=== PATIENT | male | born 1990 | race Caucasian/White ===

== ENCOUNTER 2025-04-23 11:43 | Emergency (ER) | payer BC ==
[~2025-04-23] VITALS: Ht 182.9 cm; Wt 116.3 kg
--- NOTE | 2025-04-23 11:58 | ELECTROCARDIOGRAPH REPORT ---
[facility] Test Date: 2025-04-23 Test Time: 11:55:58 Pat Name: SCOOTER VALLADARES Department: EMERGENCY ROOM Room: Gender: M [employer]st: : 1990 Requested By: MAGALIE TAVERAS Order Number: [id number] Reading MD: Measurements Intervals [place] Rate: 74 P: 59 HI: 162 QRS: 73 QRSD: 85 T: 33 QT: 346 QTc: 384 Interpretive Statements Sinus rhythm Please click the below link to view image of tracing.
[2025-04-23 12:07] LABS: MEAN PLATELET VOLUME 9.1 FL (7.4-10.4); RED CELL DISTRIBUTION WIDTH 13.5 % (11.5-14.5)
--- NOTE | 2025-04-23 12:16 | RADIOLOGY REPORT ---
CHEST RADIOGRAPH Indication: CP Technique: Single frontal view of the chest was obtained COMPARISON: None FINDINGS: Lines and Tubes: None Lungs: Clear Pleura: No effusion. No pneumothorax. Cardiomediastinal contours: Unremarkable Bones: Unremarkable IMPRESSION: No acute disease.
[2025-04-23 12:27] LABS: CREATININE 1.03 MG/DL (0.60-1.10); PRO BRAIN NATRIURETIC PEPTIDE < 30 PG/ML (0-125); TOTAL CARBON DIOXIDE 28.8 MMOL/L (24-32); eCRCL 108 ML/MIN; eGFR 81 ML/MIN
[2025-04-23] MEDS ORDERED: albumin (human) 25% 100 ML IV solution IV ONE (13:45)
--- NOTE | 2025-04-23 14:16 | Physician Documentation ---
History of Present Illness ~ Chief Complaint: Chest Wall Pain Stated Complaint: CHEST WALL PAIN Time Seen by MD: 14:00 Mode of Arrival: POV HPI 35 year old male presents to the ED with complaints of intermittent left-sided chest pain. He does have a history of anxiety. He states that his brother started having heart attacks at the patient's age which adds additional concerns of the patient. Also reports having elevated blood pressures in the 140s and 150s systolic not all the time this is primarily when he is feeling stressed and anxious.. Denies any current chest pain denied denies any shortness the breath or nausea vomiting Tetanus within 5 Years?: No Allergies: Coded Allergies: No Known Allergies (Unverified , 04/23/25) Active Prescriptions See Medication Reconciliation Form. Review of Systems All Other Systems at this time: Reviewed and Negative ROS As stated above in the HPI, otherwise all systems are reviewed and negative. Physical Exam Vital Signs: Temperature: 97.8, Source: Temporal, Heart Rate: 92, Respiratory Rate: 18, BP: 151/87, Pulse Oximetry: 98, Weight: 116.300 Physical Exam General: Alert, no apparent distress. Respiratory: Lungs clear, no respiratory distress. Cardiovascular: Regular rate and rhythm, no murmurs. Gastrointestinal: Soft, nontender, nondistended. Bowels sounds present. Neurologic: Oriented x4. Psychiatric: Normal mood and affect. Skin: Normal color, warm and dry. No edema, no ecchymosis. Progress Results/Orders Results/Orders Vital Signs 04/23/25 04/23/25 04/23/25 04/23/25 11:49 14:06 14:18 14:43 Temp 97.8 97.8 Pulse 92 70 71 Resp 18 16 B/P (MAP) 151/87 131/97 (108) 131/97 Pulse Ox 98 98 98 Laboratory Tests Test 04/23/25 11:56 04/23/25 13:56 White Blood Count 4.3 L Red Blood Count 5.56 Hemoglobin 16.3 Hematocrit 48.2 Mean Corpuscular Volume 86.6 Mean Corpuscular Hemoglobin 29.2 Mean Corpuscular Hemoglobin Concent 33.8 Red Cell Distribution Width 13.5 Platelet Count 132 L Mean Platelet Volume 9.1 Neutrophils (%) (Auto) 49.5 Lymphocytes (%) (Auto) 37.5 Monocytes (%) (Auto) 6.5 Eosinophils (%) (Auto) 5.7 Basophils (%) (Auto) 0.8 Neutrophils # (Auto) 2.1 Lymphocytes # (Auto) 1.6 Monocytes # (Auto) 0.3 Eosinophils # (Auto) 0.2 Basophils # (Auto) 0.0 CBC Comment Sodium Level 142 Potassium Level 4.8 Chloride Level 106 Carbon Dioxide Level 28.8 Anion Gap 7 L Blood Urea Nitrogen 21 H Creatinine 1.03 Estimated GFR/1.73 m2 81 BUN/Creatinine Ratio 20.4 H Glucose Level 98 Calcium Level 9.1 Troponin I High Sensitivity 6 7 Pro-B-Type Natriuretic Peptide < 30 Albumin 4.3 Chemistry Comments Troponin I High Sens Percent Delta 16 Troponin I Hi Sens Absolute Change 1 Medical Decision Making Additional information obtaine: N/A Findings Patient's labs showed no signs of any cardiac events particularly he has negative troponins. His EKG is normal sinus rhythm at a regular rate with no axis deviation X-ray showed no signs of infiltrate or cardiomegaly. I spent a good deal of time discussing with the patient that his symptoms are likely clinically correlated with anxiety about his health secondary to his family history. Talked to him about managing in his anxiety and establishing with a primary care under the determine if he has a elevated cholesterol or any other modifiable risk factors. At this time I am going to discharge him with the advice to establish care and follow up in the outpatient setting Differential Dx:Considerations: Include: Chest wall contusion, Flail chest, Myocardial contusion, Pneumothorax, Pulmonary contusion, Rib fracture, Renal contusion, Splenic fracture, Tension pneumothorax, Other Departure Disposition: 01 HOME / SELF CARE / HOMELESS Impression: Primary Impression: Chest wall pain Condition: Stable Discharge Instructions: Chest Wall Pain Additional Instructions: He is instructed it is important that you establish with a primary care in order to develop baseline lab values and other modifiable risk factors. Attempt to increase your cardiovascular exercise and sleep in order to better maintain your anxiety Referrals: NO PRIMARY CARE PROVIDER (PCP) Education Educated: Patient Educated regarding: diagnosis Signature Scribe Signature: f Attestation: Scribed for Kody Etienne Desk Director by Kody Nguyen NP . 04/23/25 14:13 KODY ETIENNE NP Apr 23, 2025 14:16
[2025-04-23 14:43] VITALS: BP 131/97; PULSE 71; RESP 16; TEMP 97.8; O2SAT 98
== END 2025-04-23 14:45 | disposition home or self-care (01) ==
LOC: ER 11:44
DX: R07.89 Other chest pain (principal)
CPT/HCPCS: 36415; 71045; 80048; 83880; 84484; 85025; 93005; 99285

== ENCOUNTER 2025-04-27 10:30 | Emergency (ER) | payer BC ==
[~2025-04-27] VITALS: Ht 182.9 cm; Wt 117.3 kg
--- NOTE | 2025-04-27 10:41 | ELECTROCARDIOGRAPH REPORT ---
[facility] Test Date: 2025-04-27 Test Time: 10:39:57 Pat Name: SCOOTER VALLADARES Department: EMERGENCY ROOM Room: Gender: M [employer]: : 1990 Requested By: HUMERA MANZO Order Number: [id number] Reading MD: Dr. Scooyb Maddox Measurements Intervals [place] Rate: 87 P: 65 [place]: 166 QRS: 68 QRSD: 83 T: 42 QT: 330 QTc: 397 Interpretive Statements Sinus rhythm Probable left atrial enlargement ST elev, probable normal early repol pattern Electronically Signed On 04-29-2025 20:43:[address] Scooby Maddox Please click the below link to view image of tracing.
--- NOTE | 2025-04-27 11:03 | RADIOLOGY REPORT ---
DI CHEST,SINGLE VIEW, HISTORY: CP COMPARISON: DI CHEST,SINGLE VIEW on DOS: 04/23/25 DI CHEST,SINGLE VIEW on DOS: 04/23/25 TECHNICAL DATA: 1 view of the chest was obtained. FINDINGS: Lines and tubes: None Cardiomediastinal silhouette: normal Pulmonary vasculature: normal Lung expansion: normal Lung airspace: normal Lung interstitium: normal Pleura: normal Pneumothorax: no Bones: Unremarkable Other: no IMPRESSION: No acute intrathoracic abnormality.
[2025-04-27 11:08] LABS: MEAN PLATELET VOLUME 9.5 FL (7.4-10.4); RED CELL DISTRIBUTION WIDTH 13.5 % (11.5-14.5)
[2025-04-27 11:27] LABS: CREATININE 0.88 MG/DL (0.60-1.10); PRO BRAIN NATRIURETIC PEPTIDE < 30 PG/ML (0-125); TOTAL CARBON DIOXIDE 26.5 MMOL/L (24-32); eCRCL 126 ML/MIN; eGFR > 90 ML/MIN
--- NOTE | 2025-04-27 13:25 | Physician Documentation ---
History of Present Illness ~ Chief Complaint: Chest Pain Stated Complaint: PALPITATIONS Time Seen by MD: 10:39 OK to notify your PCP?: Yes Source: patient Mode of Arrival: POV Exam Limitations: no limitations HEART Score: 0 HPI 35-year-old male with chief complaint chest pain that occurred this morning when he woke up he states it was present immediately upon waking up around 5:00 a.m. this morning. He reports associated palpitations described as feeling like his heart is going fast and then pausing and he states when it does this he experien chance the pain like something is squeezing his heart. He has been seen in the ER for this before but he states I just do not know what I am so us to do when this happens because it feels very serious. He has not yet been seen by a primary care provider or gotten a referral to cardiology for an outpatient workup. He does not have any exertional symptoms. He does state that his mother three months ago and he has had quite a bit of grief from this. He has good support from his who is present. No depression or suicidal or homicidal ideations. No lightheadedness, syncopal episodes, or edema. Medication Reconciliation Allergies: Coded Allergies: No Known Allergies (Unverified , 04/27/25) Past Medical History Past Medical History: No Pertinent History Review of Systems All Other Systems at this time: Reviewed and Negative Physical Exam Vital Signs: Temperature: 96.6, Source: Temporal, Heart Rate: 67, Respiratory Rate: 14, BP: 119/76, Pulse Oximetry: 96, Weight: 117.300 Oxygen Flow Rate: 0 Physical Exam GENERAL: Alert, no acute distress. HEENT: NCAT, EOMI, PERRL, normal oropharynx, moist oral mucosa. NECK: Supple, trachea midline. CARDIAC: Regular rate and rhythm, no murmurs, rubs, or gallops. Equal distal pulses. No lower extremity edema, cap refill less than 2 seconds. RESPIRATORY: Equal breath sounds, clear to auscultation bilaterally, no respiratory distress. GASTROINTESTINAL: Non distended, soft, nontender, No guarding or rebound. MUSCULOSKELETAL: Normal range of motion, nontender, no swelling. Normal gait. NEUROLOGICAL: Awake, alert, and oriented x 3. SKIN: Warm/dry, no pallor, no rash. PSYCH: Alert and appropriate. Affect congruent with mood. Speech is clear. Good eye contact. Progress Results/Orders Results/Orders Vital Signs 04/27/25 04/27/25 04/27/25 04/27/25 10:32 10:47 10:48 11:30 Temp 96.6 Pulse 92 87 77 Resp 16 16 12 B/P (MAP) 154/96 139/89 (106) 119/77 (91) Pulse Ox 97 97 97 95 O2 Delivery Room Air* O2 Flow Rate 0 0 0 0 FiO2 21 04/27/25 04/27/25 04/27/25 04/27/25 11:36 12:30 12:56 13:44 Temp 98.7 Pulse 70 67 75 Resp 17 15 14 14 B/P (MAP) 107/70 (82) 119/76 (90) 132/80 Pulse Ox 96 96 99 O2 Flow Rate 0 0 Laboratory Tests Test 04/27/25 10:54 04/27/25 12:32 04/27/25 13:25 White Blood Count 3.8 L Red Blood Count 5.30 Hemoglobin 15.8 Hematocrit 45.2 Mean Corpuscular Volume 85.3 Mean Corpuscular Hemoglobin 29.8 Mean Corpuscular Hemoglobin Concent 35.0 Red Cell Distribution Width 13.5 Platelet Count 119 L Mean Platelet Volume 9.5 Neutrophils (%) (Auto) 47.6 Lymphocytes (%) (Auto) 38.3 Monocytes (%) (Auto) 7.5 Eosinophils (%) (Auto) 5.7 Basophils (%) (Auto) 0.9 Neutrophils # (Auto) 1.8 Lymphocytes # (Auto) 1.5 Monocytes # (Auto) 0.3 Eosinophils # (Auto) 0.2 Basophils # (Auto) 0.0 CBC Comment Sodium Level 143 Potassium Level 4.2 Chloride Level 107 Carbon Dioxide Level 26.5 Anion Gap 10 Blood Urea Nitrogen 18 Creatinine 0.88 Estimated GFR/1.73 m2 > 90 BUN/Creatinine Ratio 20.5 H Glucose Level 98 Calcium Level 9.1 Troponin I High Sensitivity 7 6 6 Pro-B-Type Natriuretic Peptide < 30 Albumin 4.4 Chemistry Comments Troponin I High Sens Percent Delta 14 0 Troponin I Hi Sens Absolute Change -1 0 Heart Score: Heart Score Response (Comments) Value History Slightly Suspicious 0 EKG Normal 0 Age <45 0 Risk Factors No known risk factors 0 Troponin Normal limit 0 Total 0 Medical Decision Making Additional information obtaine: N/A Findings n/a Heart Score: 0 Differential Dx:Considerations: Include: angina, aortic dissection, chest wall pain, cholelithiasis, CHF, costochondritis, esophageal reflux/spasm, gastritis, herpes zoster, myocardial infarction, pericarditis, pleuritis, pancreatitis, pneumonia, pneumothorax, pulmonary embolus, other Additional Information Heart score is a 0 patient is a heart rhythm was in sinus rhythm the entire time he was here in the ER I suspect that his symptoms may be due to anxiety and grief given the fact that they started after the passing of his mother three months ago. Not consistent with PE. He has no hypoxia or tachycardia. He does not have any exertional symptoms this is all reassuring but we did discuss recommendation is still for outpatient workup. Departure Time of Disposition: 13:25 Disposition: 01 HOME / SELF CARE / HOMELESS Impression: Primary Impression: Chest pain Qualified Codes: R07.9 - Chest pain, unspecified Condition: Stable Discharge Instructions: Nonspecific Chest Pain, Adult Additional Instructions: repeat troponin was lower than first recommend follow up with pcp for holter monitor or xiopatch return to er if any new concerning symptoms Referrals: NO PRIMARY CARE PROVIDER (PCP) Education Educated: Patient Educated regarding: diagnosis, treatment, need for follow up Signature Scribe Signature: x Attestation: EUNICE Denny Apr 27, 2025 13:25
[2025-04-27 13:44] VITALS: BP 132/80; PULSE 75; RESP 14; TEMP 98.7; O2SAT 99
== END 2025-04-27 13:48 | disposition home or self-care (01) ==
LOC: ER 10:30
DX: R07.9 Chest pain, unspecified (principal); R06.02 Shortness of breath
CPT/HCPCS: 36415; 71045; 80048; 83880; 84484; 85025; 93005; 99285